=== PATIENT | male | born 1980 | race African-American/Black ===

== ENCOUNTER 2021-07-04 18:47 | Emergency (ER) | payer OTHER ==
[~2021-07-04] VITALS: Ht 154.9 cm; Wt 102.1 kg
[2021-07-04 19:24] LABS: PLATELET COUNT 285 K/uL (142-355)
[2021-07-04 19:33] LABS: POTASSIUM 3.3 mmol/L (3.6-5.2); SODIUM 135 mmol/L (136-145)
[2021-07-06 04:36] LABS: PLATELET COUNT 311 K/uL (142-355)
[2021-07-06 04:50] LABS: POTASSIUM 3.7 mmol/L (3.6-5.2)
[2021-07-07 21:15] LABS: PLATELET COUNT 382 K/uL (142-355)
[2021-07-07 21:43] LABS: POTASSIUM 4.1 mmol/L (3.6-5.2)
[2021-07-08 06:28] LABS: PLATELET COUNT 390 K/uL (142-355)
[2021-07-08 06:54] LABS: POTASSIUM 3.5 mmol/L (3.6-5.2)
[2021-07-09 04:53] LABS: POTASSIUM 4.1 mmol/L (3.6-5.2)
[2021-07-09 05:06] LABS: PLATELET COUNT 457 K/uL (142-355)
[2021-07-09 08:00] VITALS: TEMP 97.4
[2021-07-09 14:04] VITALS: BP 116/62
== END 2021-07-09 15:56 | disposition still patient (30) ==
LOC: ED 18:47
PROVIDERS: Emergency Medicine; Family Medicine; Hospitalist
DX: U07.1 COVID-19 (principal); J12.82 Pneumonia due to coronavirus disease 2019; R09.02 Hypoxemia; E66.8 Other obesity
CPT/HCPCS: 36415; 36600; 80053; 82150; 82728; 82805; 83690; 83735; 84100; 84484; 85027; 86140; 86900; 86901; 87635; 93005; 94760; 96365; 96375; 99284; J1100; J1650; J2543; J3490; P9017; U0003